=== PATIENT | female | born 1980 | race Caucasian/White ===

== ENCOUNTER → 2023-10-28 09:43 | Outpatient (REF) | payer OTHER, SELFPAY ==
[2023-10-28 10:46] LABS: Microalbumin, Random Urine 2.6 mg/dl (0.6-1.7); Microalbumin/creatinine Ratio 30.1 mg/g
[2023-10-28 12:00] LABS: Glycohemoglobin (HgbA1c) 8.2 % (4.0-5.6)
[2023-10-28 12:22] LABS: TSH Reflex To Free T4 1.33 uIU/ml (0.47-4.68)
[2023-10-28 13:08] LABS: ALT (SGPT) 22 U/L (0-35); AST (SGOT) 20 U/L (14-36); Albumin 4.3 g/dl (3.5-5.0); Alkaline Phosphatase 83 U/L (38-126); Blood Urea Nitrogen 19 mg/dl (7-17); Calcium 10.5 mg/dl (8.4-10.2); Carbon Dioxide 33 mmol/L (22-30); Chloride 93 mmol/L (98-107); Glucose 144 mg/dl (70-99); HDL Cholesterol 49 mg/dl; LDL Cholesterol, Calculated 70 mg/dl; Potassium 3.6 mmol/L (3.5-5.1); Sodium 137 mmol/L (135-145); Total Bilirubin 0.5 mg/dl (0.2-1.3); Total Cholesterol 180 mg/dl (50-199); Total Protein 6.8 g/dl (6.3-8.2); Triglyceride 308 mg/dl (10-149); Very Low Density Lipoprotein 61 mg/dl (0-30); eGFR > 60.00
== END ==
LOC: REG 09:43
PROVIDERS: ATTENDING PHYSICIAN Family Medicine
DX: E11.65 Type 2 diabetes mellitus with hyperglycemia (principal); E78.00 Pure hypercholesterolemia, unspecified; E78.1 Pure hyperglyceridemia; I10 Essential (primary) hypertension; Z68.32 Body mass index [BMI] 32.0-32.9, adult
CPT/HCPCS: 36415; 80053; 80061; 82043; 82570; 83036; 84443

== ENCOUNTER → 2024-04-20 10:35 | Outpatient (REF) | payer BC, SELFPAY ==
[2024-04-20 12:24] LABS: TSH 0.72 uIU/ml (0.47-4.68)
[2024-04-20 12:53] LABS: Microalbumin, Random Urine 0.7 mg/dl (0.6-1.7)
[2024-04-20 14:46] LABS: Folate 16.5 ng/ml (2.76-20); Vitamin B12 496 pg/ml (239-931)
== END ==
LOC: REG 10:35
PROVIDERS: ATTENDING PHYSICIAN Family Medicine; FAMILY PHYSICIAN Family Medicine
DX: E11.65 Type 2 diabetes mellitus with hyperglycemia (principal); E78.00 Pure hypercholesterolemia, unspecified; I10 Essential (primary) hypertension; R53.83 Other fatigue
CPT/HCPCS: 36415; 82043; 82570; 82607; 82746; 84443

== ENCOUNTER → 2024-04-22 10:31 | Outpatient (REF) | payer BC, SELFPAY ==
[2024-04-22 12:03] LABS: Glycohemoglobin (HgbA1c) 6.4 % (4.0-5.6)
[2024-04-22 12:50] LABS: ALT (SGPT) 41 U/L (0-35); AST (SGOT) 36 U/L (14-36); Albumin 4.6 g/dl (3.5-5.0); Alkaline Phosphatase 96 U/L (38-126); Blood Urea Nitrogen 9 mg/dl (7-17); Calcium 10.3 mg/dl (8.4-10.2); Carbon Dioxide 28 mmol/L (22-30); Chloride 99 mmol/L (98-107); Glucose 124 mg/dl (70-99); HDL Cholesterol 43 mg/dl; LDL Cholesterol, Calculated 90 mg/dl; Potassium 3.3 mmol/L (3.5-5.1); Sodium 138 mmol/L (135-145); Total Bilirubin 0.5 mg/dl (0.2-1.3); Total Cholesterol 180 mg/dl (50-199); Total Protein 6.9 g/dl (6.3-8.2); Triglyceride 238 mg/dl (10-149); Very Low Density Lipoprotein 47 mg/dl (0-30); eGFR > 60.00
== END ==
LOC: REG 10:31
PROVIDERS: ATTENDING PHYSICIAN Family Medicine; FAMILY PHYSICIAN Family Medicine
DX: E11.65 Type 2 diabetes mellitus with hyperglycemia (principal); I10 Essential (primary) hypertension; E78.00 Pure hypercholesterolemia, unspecified; R53.83 Other fatigue
CPT/HCPCS: 80053; 80061; 83036

== ENCOUNTER → 2024-06-27 15:45 | Outpatient (REF) | payer BC, SELFPAY | LOC: PAVMRI 15:45 | PROVIDERS: ATTENDING PHYSICIAN Physician Assistant | DX: M25.561 Pain in right knee (principal) | CPT/HCPCS: 73721 ==

== ENCOUNTER 2024-11-14 06:25 | Day surgery (SDC) | payer BC, SELFPAY ==
[2024-11-14 08:01] LABS: Glucose - Point of Care 111 mg/dl (70-99)
== END 2024-11-14 09:44 | disposition home or self-care (01) ==
LOC: GI 06:25
PROVIDERS: ATTENDING PHYSICIAN Student in an Organized Health Care Education/Training Program
DX: D12.2 Benign neoplasm of ascending colon (principal); D12.4 Benign neoplasm of descending colon; K63.5 Polyp of colon; K62.1 Rectal polyp; D17.5 Benign lipomatous neoplasm of intra-abdominal organs; R19.4 Change in bowel habit; K59.00 Constipation, unspecified; K64.0 First degree hemorrhoids; Z86.0100 Personal history of colon polyps, unspecified
CPT/HCPCS: 45385; 88305; 82962

== ENCOUNTER → 2024-12-19 10:46 | Outpatient (REF) | payer BC, SELFPAY ==
[2024-12-19 13:44] LABS: IgA 102 mg/dl (70-400)
[2024-12-19 14:14] LABS: ALT (SGPT) 44 U/L (0-35); AST (SGOT) 19 U/L (14-36); Albumin 3.9 g/dl (3.5-5.0); Alkaline Phosphatase 107 U/L (38-126); Blood Urea Nitrogen 13 mg/dl (7-17); Calcium 10.3 mg/dl (8.4-10.2); Carbon Dioxide 26 mmol/L (22-30); Chloride 103 mmol/L (98-107); Glucose 121 mg/dl (70-99); Potassium 3.4 mmol/L (3.5-5.1); Sodium 141 mmol/L (135-145); Total Bilirubin 0.3 mg/dl (0.2-1.3); Total Protein 6.5 g/dl (6.3-8.2); eGFR > 60.00
[2024-12-19 19:07] LABS: Hepatitis B Surface Antigen Negative (Negative)
[2024-12-19 19:24] LABS: Hepatitis A Antibody, Total Positive (Negative); Hepatitis C Antibody Negative (Negative)
[2024-12-19 20:19] LABS: Hepatitis B Surface Antibody Positive
[2024-12-19 20:28] LABS: Hepatitis B Core Ab, IgM Negative (Negative)
[2024-12-22 01:28] LABS: tTG IgA Antibody <1.02 FLU (0.00-4.99)
== END ==
LOC: REG 10:46
PROVIDERS: ATTENDING PHYSICIAN Student in an Organized Health Care Education/Training Program; FAMILY PHYSICIAN Family Medicine
DX: R79.89 Other specified abnormal findings of blood chemistry (principal); R19.4 Change in bowel habit; R14.0 Abdominal distension (gaseous)
CPT/HCPCS: 36415; 80053; 82784; 86364; 86705; 86706; 86708; 86803; 87340

== ENCOUNTER 2025-02-13 10:59 | Emergency (ER) | payer BC, SELFPAY ==
[2025-02-13 11:01] VITALS: BP 128/79
[2025-02-13 13:00] VITALS: BP 125/77
[2025-02-13] MEDS: TORADOL 15 MG IV (13:11)
[2025-02-13] MEDS: NSS 1000 IV (13:11)
[2025-02-13] MEDS: ZOFRAN 4 MG IV (13:11)
--- NOTE | 2025-02-13 13:26 | ED.GENMED ---
History of Present Illness
General
Chief Complaint: Abdominal Symptoms
Source: patient
Exam Limitations: none
Time Seen by Provider: 02/13/25 12:46
Nursing documentation reviewed up to this point in time: agreed with
History of Present Illness
History of Present Illness:
Patient is a 44-year-old female who presents to the emergency department with lower back pain worsening over the past three days. Patient reports a progressively worsening pain across her lower back, maybe slightly worse on the left side radiating
into her lower abdomen. Pain is constant in nature. Patient denies any fevers, chills. She denies any urinary symptoms or changes in bowel habits. She denies any abnormal vaginal bleeding or discharge. She denies any chest pain or shortness of
breath. No numbness/tingling in extremities or saddle anesthesia.
Patient has had kidney stones in the past and states that this does not feel similar
She has no known injury or trauma.
Past History
Past History
ED Past Medical History: HTN, Hypercholesterolemia and NIDDM
Social History
Tobacco: Smoker
Alcohol: Occasional
Personal: Single
Living: with family
Review of Systems
Review of Systems
Allergies reviewed?: Yes
All Other Systems: ROS reviewed and negative except as documented in HPI and ROS
Phy Exam
Physical Exam
Physical Exam:
Vitals: Patient's vital signs are stable. Afebrile
General: Patient is well appearing, no acute distress. Nontoxic appearing
Skin: Warm and dry, no rashes or lesions
Head: Normocephalic, atraumatic
Eyes: Sclera nonicteric.
Throat: Protecting airway
Neck: Normal ROM, no cervical spine tenderness, no meningismus
Cardiac: Regular rate and rhythm, no murmurs.
Pulm: Normal respiratory effort, no wheezes, rales, rhonchi heard on exam
.
Abdomen: Abdomen soft. Mild reproducible tenderness or LLQ and suprapubic region. No rebound tenderness or guarding.
Back: Reproducible tenderness of lower back without overlying erythema or warmth. No midline spinal tenderness. No rash.
Extremities: No evidence of cyanosis or edema
Neuro: AAOx3. CN II-XII intact. No focal neurologic deficits. Steady gait.
Psychiatric: Normal affect.
Course
Orders/Labs/Results
Orders:
Orders
02/13/25
CT Abd/pelvis W Iv Cont Urgent
02/13/25 13:00
0.9% Sodium Chloride 1000 ml [Nss] 1,000 ml IV BOLUS
Ketorolac [Toradol] 15 mg IV NOW STA
Ondansetron Injectable [Zofran] 4 mg IV NOW STA
02/13/25 13:02
Test Result ONCE
02/13/25 14:54
Complete Blood Count/With Diff Urgent
Comprehensive Metabolic Panel Urgent
HCG, Serum Qualitative Screen Urgent
02/13/25 15:07
Urinalysis Reflex To Culture Urgent
Date Specimen was Collected: 02/13/25
Time Specimen was Collected: 14:56
Urine Microscopic Reflex Cult Urgent
02/13/25 16:22
HYDROmorphone [Dilaudid] 0.5 mg IV NOW STA
02/13/25 17:52
Potassium Chloride [KCl] 40 meq PO NOW STA
Abnormal Lab Results
02/13/25 02/13/25
14:54 15:07
WBC 13.9 H 10^3/uL
(4.8-10.8)
Abs Immat Gran (auto) 0.1 H 10^3/uL
(0-0.05)
Absolute Neuts (auto) 10.5 H 10^3/uL
(1.4-6.5)
Neutrophils % 75.3 H %
(42.2-75.2)
Lymphocytes % 19.2 L %
(20.5-51.1)
Potassium 3.2 L mmol/L
(3.5-5.1)
Glucose 100 H mg/dl
(70-99)
ALT 41 H U/L
(0-35)
Total Protein 6.2 L g/dl
(6.3-8.2)
Urine Bacteria (Reflex) Few A
(Negative)
Urine Albumin (Reflex) 1+ A
(Neg - Trace)
02/13/25 14:54
02/13/25 14:54
Vital Signs
Initial and Last Documented VS:
Initial Vital Signs
Temp Pulse Resp BP Pulse Ox
97.9 F 99 16 128/79 95
02/13/25 11:01 02/13/25 11:01 02/13/25 11:01 02/13/25 11:01 02/13/25 11:01
Last Documented Vital Signs
Temp Pulse Resp BP Pulse Ox
97.9 F 92 19 110/65 91
02/13/25 11:01 02/13/25 17:45 02/13/25 17:45 02/13/25 17:00 02/13/25 17:15
MDM/Problems Addressed
Differential Diagnosis Includes:
Not limited to: pyelonephritis, diverticulitis, ureterolithiasis, ovarian cyst, etc
MDM/Problems Addressed:
44-year-old female with gradually worsening lower back discomfort radiating into low abdomen for the past three days. No associated fever, vomiting, urinary symptoms, vaginal discharge. No diarrhea or constipation. Vital stable. Physical exam as
above.
Feel clinical history and exam less consistent with renal colic. Other considerations would include cystitis, pyelonephritis, diverticulitis, etc. Will plan for laboratory screening, urinalysis, CT scan. Will treat pain and give IV fluids.
Update: labs reviewed. Mild leukocytosis noted. Chemistry with mild hypokalemia otherwise unremarkable. Urine does not appear infected, and she has no RBCs. CT scan without any acute findings, specifically no evidence of uretera obstruction or bowel
pathology. Small fibroid noted which I discussed with patient. I feel unlikely to be contributing to majority of patient symptoms however it is a possibility. DO not suspect ovarian etiology given normal appearanc amber CT. Ultimately - workup ED has
been unremarkable. Patient remains well appearing and in no apparent distress. Do not feel abx indicated given no clear evidence of infection. Possibly MSK in nature. No evidence of vascular emergency or symptoms of cauda equina. At this point -
feel patient stable for discharge home with primary care f/u, supportive care. Return precautions discussed. Patient comfortable with plan.
Chronic conditions affecting care:
N/A
Acute Exacerbation and/or Progression of Chronic Illness:
N/A
*Radiology
Radiology exam reviewed: radiology read reviewed
*Pulse Oximetry
Patient hypoxic: no
*EKG
Interpreted by ED Provider?: NA
*Senior Hardware Design Engineer Interpretation
Rate: Senior Hardware Design Engineer- N/A
*Critical Care Note
Total Time (30-74mins, 75-104mins- exclusive of procedures): Not Applicable
ED Attending Note
-
Portions of this chart may have been created with voice recognition software.� Occasional wrong word or��sound alike� substitutions may have occurred due to the inherent limitations of voice recognition software.
Discharge Plan
Departure
Patient Disposition: Home (Routine Discharge)
Date of Disposition: 02/13/25
Time of Disposition: 17:44
Patient with high blood pressure during this ER visit?: Yes
Condition: Good
Covid-19: Not Applicable
Discharge Problem:
Low back pain, Abdominal pain
Instructions: Back Pain, Abdominal Pain
Prescriptions:
New
ondansetron 4 mg tablet,disintegrating
4 mg PO Q8H PRN (Reason: nausea and vomiting) Qty: 5 0RF
No Action
oxycodone-acetaminophen 5 MG/325 MG tablet
1 tab PO Q6HPRN PRN (Reason: pain) Qty: 14 0RF
olmesartan 20 MG tablet
20 mg PO DAILY
amlodipine 5 MG tablet
5 mg PO DAILY
lorazepam 2 MG tablet
2 mg PO Q8HPRN PRN (Reason: anxiety)
albuterol sulfate 1 PUFF HFA aerosol inhaler
2 puff inhalation R Q4HPRN PRN (Reason: asthma)
budesonide-formoterol [Symbicort] 1 PUFF HFA aerosol inhaler
2 puff inhalation R BID
metformin 500 MG tablet
500 mg PO DAILY
rosuvastatin 5 MG tablet
5 mg PO DAILY
Referrals:
Clovis Dejesus, DO [Family Provider] - Follow up in 2-3 days
Stand Alone Forms: Return to Work
Activity Restrictions/Additional Instructions:
RETURN TO THE EMERGENCY DEPARTMENT WITH ANY FEVERS, CHILLS, PERSISTENT/WORSENING ABDOMINAL PAIN, INTRACTABLE NAUSEA/VOMITING, NUMBNESS/TINGLING OR WEAKNESS IN EXTREMITIES, WORSENING IN CURRENT SYMPTOMS, OR ANY OTHER CONCERNS
- As discussed�your white blood cell count was elevated in the emergency department. Please ensure that this trends down with your primary care doctor. Your potassium level was slightly low, as well. You were given a dose of oral potassium in the
emergency department. I recommend a high potassium diet and following up your primary care for repeat lab work.
- Your CT scan showed a mild elevation in your bile duct. However your liver function tests and bilirubin were without significant abnormalities. You may require an additional MRI/MRCP which can be done outpatient.
- Stay well-hydrated. Get plenty rest. You can take Tylenol and/or Motrin as needed for pain.
Monitor your symptoms closely and return to the emergency department with any acute worsening/new symptoms or any other concerns
Interventions
Interventions:
*Risk Screen - Suicide Last Done: 02/13/25 11:03
*General Assessment Last Done: 02/13/25 13:00
*Neglect/Abuse Screening Last Done: 02/13/25 11:03
*ED- Fall Risk Assessment Last Done: 02/13/25 13:00
*ED COVID-19 Vaccine History Last Done: 02/13/25 13:00
*Nursing Disposition Last Done: 02/13/25 18:00
CA-Yrwefh-Ulylloinxl Assessment Last Done: 02/13/25 13:00
Discharge Date and Time
Discharge Date/Time: 02/13/25 18:00
Print Language: KAZAKH
[2025-02-13 14:00] VITALS: BP 108/68
[2025-02-13 15:06] VITALS: BP 114/75
[2025-02-13 15:09] LABS: % Basophils 0.4 % (0-2); % Eosinophils 0.4 % (0-6); % Immature Granulocytes 0.5 % (0-0.5); % Lymphocytes 19.2 % (20.5-51.1); % Monocytes 4.2 % (1.7-9.3); % Neutrophils 75.3 % (42.2-75.2); Absolute Basophils 0.1 10^3/uL (0-0.2); Absolute Eosinophils 0.1 10^3/uL (0-0.7); Absolute Immature Granulocytes 0.1 10^3/uL (0-0.05); Absolute Lymphocytes 2.7 10^3/uL (1.2-3.4); Absolute Monocytes 0.6 10^3/uL (0.1-0.6); Absolute Neutrophils 10.5 10^3/uL (1.4-6.5); Hematocrit 38.6 % (37.0-47.0); Hemoglobin 13.1 g/dL (12.0-16.0); Mean Corp Hgb Conc. 33.9 g/dL (33.0-37.0); Mean Corpuscular Hgb 30.2 pg (27.0-31.0); Mean Corpuscular Volume 88.9 fL (81.0-99.0); Mean Platelet Volume 7.8 fL (7.4-10.4); Nucleated Red Blood Cells % 0 %; Platelet Count 354 10^3/uL (130-400); Red Blood Cell Count 4.34 10^6/uL (4.20-5.40); Red Cell Dist. Width 12.6 % (11.5-14.5); White Blood Cell Count 13.9 10^3/uL (4.8-10.8)
[2025-02-13 15:21] LABS: ALT (SGPT) 41 U/L (0-35); AST (SGOT) 23 U/L (14-36); Albumin 3.9 g/dl (3.5-5.0); Alkaline Phosphatase 104 U/L (38-126); Blood Urea Nitrogen 11 mg/dl (7-17); Calcium 9.4 mg/dl (8.4-10.2); Carbon Dioxide 28 mmol/L (22-30); Chloride 107 mmol/L (98-107); Glucose 100 mg/dl (70-99); Potassium 3.2 mmol/L (3.5-5.1); Sodium 139 mmol/L (135-145); Total Bilirubin 0.5 mg/dl (0.2-1.3); Total Protein 6.2 g/dl (6.3-8.2); eGFR > 60.00
[2025-02-13 15:23] LABS: HCG, Serum Qualitative Screen Negative
[2025-02-13 16:14] LABS: Urine Albumin 1+ (Neg - Trace); Urine Bilirubin Negative (Negative); Urine Character Clear (Clear); Urine Color Yellow; Urine Glucose Negative (Negative); Urine Ketone Negative (Negative); Urine Leukocyte Negative (Negative); Urine Nitrite Negative (Negative); Urine Occult Blood Negative (Negative); Urine Specific Gravity 1.015 (<1.030); Urine Urobilinogen Negative (Neg - 1+)
[2025-02-13 16:40] LABS: Urine Bacteria Few (Negative); Urine Hyaline Cast 0-2 /LPF (0-2); Urine Red Blood Cell 0-2 /HPF (0-2); Urine Squamous Cell >30 /LPF (Few)
[2025-02-13] MEDS: DILAUDID 0.5 MG IV (16:44)
[2025-02-13 16:46] VITALS: BP 123/71
[2025-02-13 17:00] VITALS: BP 110/65
[2025-02-13] MEDS: KCL 40 MEQ PO (18:02)
== END 2025-02-13 18:00 | disposition home or self-care (01) ==
LOC: EMR 10:59
PROVIDERS: Physician Assistant; EMERGENCY PHYSICIAN Emergency Medicine; FAMILY PHYSICIAN Family Medicine
DX: M54.50 Low back pain, unspecified (principal); R10.9 Unspecified abdominal pain; E87.6 Hypokalemia; D25.9 Leiomyoma of uterus, unspecified; E78.00 Pure hypercholesterolemia, unspecified; I10 Essential (primary) hypertension; E11.9 Type 2 diabetes mellitus without complications; F17.200 Nicotine dependence, unspecified, uncomplicated
CPT/HCPCS: 96374; 96375; 96361; 99284; 74177; 80053; 81003; 81015; 84703; 85025; Q9967

== ENCOUNTER 2025-06-05 09:19 | Emergency (ER) | payer BC, SELFPAY ==
[2025-06-05 09:21] VITALS: BP 167/111
[2025-06-05 09:32] VITALS: BMI 30.7
[2025-06-05] MEDS: NSS 1000 IV ×2 (09:37→12:18)
[2025-06-05] MEDS: ZOFRAN 4 MG IV ×2 (09:37→12:19)
[2025-06-05] MEDS: PEPCID 20 MG IV (09:38)
[2025-06-05 09:55] LABS: Hematocrit 49.0 % (37.0-47.0); Hemoglobin 16.8 g/dL (12.0-16.0); Mean Corp Hgb Conc. 34.3 g/dL (33.0-37.0); Mean Corpuscular Volume 88.0 fL (81.0-99.0); Nucleated Red Blood Cells % 0 %; Platelet Count 330 10^3/uL (130-400); Red Cell Dist. Width 12.3 % (11.5-14.5)
[2025-06-05 10:11] LABS: ALT (SGPT) 22 U/L (0-35); AST (SGOT) 18 U/L (14-36); Albumin 5.0 g/dl (3.5-5.0); Alkaline Phosphatase 83 U/L (38-126); Blood Urea Nitrogen 14 mg/dl (7-17); Calcium 10.5 mg/dl (8.4-10.2); Carbon Dioxide 28 mmol/L (22-30); Chloride 99 mmol/L (98-107); Estimated Creatinine Clearance 112 ml/min; Glucose 133 mg/dl (70-99); Lipase 210 U/L (23-300); Potassium 3.4 mmol/L (3.5-5.1); Sodium 137 mmol/L (135-145); Total Protein 7.7 g/dl (6.3-8.2); eGFR > 60.00
[2025-06-05] MEDS: BENADRYL 25 MG IV (10:44)
[2025-06-05] MEDS: REGLAN 10 MG IV (10:44)
[2025-06-05 12:19] VITALS: BP 163/103
--- NOTE | 2025-06-05 13:55 | ED.GENMED ---
History of Present Illness
General
Chief Complaint: Abdominal Symptoms
Source: patient
Exam Limitations: none
Time Seen by Provider: 06/05/25 09:26
Nursing documentation reviewed up to this point in time: agreed with
History of Present Illness
History of Present Illness:
45-year-old female past ministry of hypertension hyperlipidemia, asthma anxiety panic disorder presenting to the emergency department today with concerns of nausea vomiting diarrhea over the past 3 days. Seem to improve up until last night and then
recurred this morning. Denies any abdominal pain chest pain or shortness of breath. Denies any history of GI issues does not consume marijuana or drink alcohol.
Past History
Past History
ED Past Medical History: HTN, Hypercholesterolemia and NIDDM
Social History
Tobacco: Smoker
Alcohol: Occasional
Personal: Single
Living: with family
Review of Systems
Review of Systems
Allergies reviewed?: Yes
All Other Systems: ROS reviewed and negative except as documented in HPI and ROS
Phy Exam
Physical Exam
Physical Exam:
GENERAL: Alert , in no apparent distress
EYE: pupils equal and reactive
NECK: Supple, no significant adenopathy.
ENT: o/p clr, mmm.
CARDIAC: Regular rate and rhythm .
LUNGS: Clear breath sounds bilaterally, no acute respiratory distress, no wheezes/rales/rhonchi
ABDOMEN: Soft, without focal tenderness, no r/g, no cvat
NEUROLOGICAL: Alert and oriented, no focal neuro deficits
SKIN: Warm and dry, skin intact.
MUSCULOSKELETAL: No edema, well perfused.
PSYCH: Normal and appropriate interaction.
Course
Orders/Labs/Results
Orders:
Orders
06/05/25 09:26
0.9% Sodium Chloride 1000 ml [Nss] 1,000 ml IV BOLUS
Famotidine [Pepcid] 20 mg IV NOW STA
Ondansetron Injectable [Zofran] 4 mg IV NOW STA
06/05/25 09:35
Complete Blood Count/With Diff Urgent
Comprehensive Metabolic Panel Urgent
Lipase Urgent
06/05/25 10:20
Diphenhydramine [Benadryl] 25 mg IV NOW STA
Metoclopramide [Reglan] 10 mg IV NOW STA
06/05/25 11:59
EKG [Electrocardiogram (*1)] Urgent
Reason for Study: Abdominal Pain
EKG- Treatment ONCE
0.9% Sodium Chloride 1000 ml [Nss] 1,000 ml IV BOLUS
Ondansetron Injectable [Zofran] 4 mg IV NOW STA
06/05/25 14:27
Alprazolam [Xanax] 0.5 mg PO ONCE ONE
06/05/25 15:13
Urinalysis Reflex To Culture Urgent
Date Specimen was Collected: 06/05/25
Time Specimen was Collected: 14:17
Abnormal Lab Results
06/05/25
09:35
RBC 5.57 H 10^6/uL
(4.20-5.40)
Hgb 16.8 H g/dL
(12.0-16.0)
Hct 49.0 H %
(37.0-47.0)
Absolute Neuts (auto) 7.1 H 10^3/uL
(1.4-6.5)
Absolute Monos (auto) 0.8 H 10^3/uL
(0.1-0.6)
Potassium 3.4 L mmol/L
(3.5-5.1)
Glucose 133 H mg/dl
(70-99)
Calcium 10.5 H mg/dl
(8.4-10.2)
06/05/25 09:35
06/05/25 09:35
Vital Signs
Initial and Last Documented VS:
Initial Vital Signs
Temp Pulse Resp BP Pulse Ox
97.5 F 102 20 167/111 98
06/05/25 09:21 06/05/25 09:21 06/05/25 09:21 06/05/25 09:21 06/05/25 09:21
Last Documented Vital Signs
Temp Pulse Resp BP Pulse Ox
97.5 F 91 16 163/103 96
06/05/25 09:21 06/05/25 12:19 06/05/25 12:19 06/05/25 12:19 06/05/25 13:56
MDM/Problems Addressed
MDM/Problems Addressed:
45-year-old female presenting to the emergency department today with concerns of nausea vomiting diarrhea ongoing for 3 days. On arrival patient retching but vital signs otherwise normal. Labs unremarkable patient was given Zofran without
significant improvement then was given Reglan. No reproducible abdominal pain. EKG normal does not seem to be consistent with any referred pain she was given multiple medications here and watched for over 6 hours with steadily improving symptoms.
Able to tolerate by mouth which was much improved from her arrival. No abdominal pain at any point. Patient appeared stable for discharge return precautions given.
*Pulse Oximetry
SaO2: 96
Oxygen Mode of Delivery: Room air
Patient hypoxic: no (96)
*Critical Care Note
Total Time (30-74mins, 75-104mins- exclusive of procedures): Not Applicable
ED Attending Note
-
Portions of this chart may have been created with voice recognition software.� Occasional wrong word or��sound alike� substitutions may have occurred due to the inherent limitations of voice recognition software.
Discharge Plan
Departure
Patient Disposition: Home (Routine Discharge)
Date of Disposition: 06/05/25
Time of Disposition: 15:35
Patient with high blood pressure during this ER visit?: No
Condition: Good
Covid-19: Not Applicable
Discharge Problem:
Vomiting, Diarrhea
Instructions: Diarrhea in teens and adults, Nausea and Vomiting, Adult (DC)
Prescriptions:
New
ondansetron 4 mg tablet,disintegrating
4 mg PO Q6H PRN (Reason: nausea and vomiting) Qty: 7 0RF
No Action
oxycodone-acetaminophen 5 MG/325 MG tablet
1 tab PO Q6HPRN PRN (Reason: pain) Qty: 14 0RF
olmesartan 20 MG tablet
20 mg PO DAILY
amlodipine 5 MG tablet
5 mg PO DAILY
lorazepam 2 MG tablet
2 mg PO Q8HPRN PRN (Reason: anxiety)
albuterol sulfate 1 PUFF HFA aerosol inhaler
2 puff inhalation R Q4HPRN PRN (Reason: asthma)
budesonide-formoterol [Symbicort] 1 PUFF HFA aerosol inhaler
2 puff inhalation R BID
metformin 500 MG tablet
500 mg PO DAILY
rosuvastatin 5 MG tablet
5 mg PO DAILY
ondansetron 4 mg tablet,disintegrating
4 mg PO Q8H PRN (Reason: nausea and vomiting) Qty: 5 0RF
Referrals:
Clovis Dejesus, [Family Provider, Family Practice]
Activity Restrictions/Additional Instructions:
You came to the emergency department today with concerns of nausea vomiting diarrhea. Here your reassuring assessment. Please use the prescribed antinausea medication and slowly progress your diet over the next few days. Return immediately for
any worsening, new or concerning symptoms.
Interventions
Interventions:
*Risk Screen - Suicide Last Done: 06/05/25 09:32
*General Assessment Last Done: 06/05/25 09:32
*Neglect/Abuse Screening Last Done: 06/05/25 09:32
*ED COVID-19 Vaccine History Last Done: 06/05/25 09:32
TC-Htyvgi-Ugjssqlhpv Assessment Last Done: 06/05/25 09:32
Discharge Date and Time
Print Language: SRI LANKAN
[2025-06-05] MEDS: XANAX 0.5 MG PO (15:03)
[2025-06-05 15:25] LABS: Urine Character Clear (Clear)
[2025-06-05 16:43] LABS: Urine Red Blood Cell 16-20 /HPF (0-2); Urine Squamous Cell 0-2 /LPF (Few)
== END 2025-06-05 16:07 | disposition home or self-care (01) ==
LOC: EMR 09:19
PROVIDERS: Physician Assistant; EMERGENCY PHYSICIAN Emergency Medicine; FAMILY PHYSICIAN Family Medicine
DX: R11.10 Vomiting, unspecified (principal); R19.7 Diarrhea, unspecified; E11.9 Type 2 diabetes mellitus without complications; I10 Essential (primary) hypertension; E78.00 Pure hypercholesterolemia, unspecified; J45.909 Unspecified asthma, uncomplicated; F41.9 Anxiety disorder, unspecified; F41.0 Panic disorder [episodic paroxysmal anxiety]; F17.200 Nicotine dependence, unspecified, uncomplicated; Z79.84 Long term (current) use of oral hypoglycemic drugs
CPT/HCPCS: 99284; 96374; 96375 ×3; 96376; 96361 ×2; 80053; 81003; 81015; 83690; 85025; 93005

== ENCOUNTER 2025-08-30 04:13 | Inpatient (IN) | payer BC, SELFPAY ==
[2025-08-30] VITALS (17 sets, daily range): BP systolic 89–140; BP diastolic 46–83; BMI 34.9; BMI 34.2
[2025-08-30 01:37] LABS: Hematocrit 37.1 % (37.0-47.0); Hemoglobin 12.8 g/dL (12.0-16.0); Mean Corp Hgb Conc. 34.5 g/dL (33.0-37.0); Mean Corpuscular Volume 90.7 fL (81.0-99.0); Nucleated Red Blood Cells % 0 %; Platelet Count 324 10^3/uL (130-400); Red Cell Dist. Width 13.0 % (11.5-14.5)
[2025-08-30] MEDS: NSS 1000 IV ×4 (01:37→21:13)
[2025-08-30] MEDS: DILAUDID 0.5 MG IV ×10 (01:38→23:27)
[2025-08-30 01:46] LABS: HCG, Serum Qualitative Screen Negative
[2025-08-30 01:52] LABS: ALT (SGPT) 40 U/L (0-35); AST (SGOT) 25 U/L (14-36); Albumin 4.1 g/dl (3.5-5.0); Alkaline Phosphatase 95 U/L (38-126); Blood Urea Nitrogen 21 mg/dl (7-17); Calcium 9.4 mg/dl (8.4-10.2); Carbon Dioxide 24 mmol/L (22-30); Chloride 106 mmol/L (98-107); Glucose 94 mg/dl (70-99); Potassium 3.8 mmol/L (3.5-5.1); Sodium 135 mmol/L (135-145); Total Protein 6.6 g/dl (6.3-8.2); eGFR > 60.00
[2025-08-30 02:11] LABS: INR 0.93; PT 12.5 Sec (11.4-14.6)
[2025-08-30 02:13] LABS: APTT 29.3 Sec (23.4-35.0)
[2025-08-30 02:15] LABS: Troponin I < 0.012 ng/ml
[2025-08-30] MEDS: ZOSYN 100 IV (02:25)
--- NOTE | 2025-08-30 02:44 | ED.GENMED ---
History of Present Illness
General
Chief Complaint: Anal/Rectal Problem
Source: patient and physician (Dr. Barnard called and notified us of her arrival and his requests)
Exam Limitations: none
Time Seen by Provider: 08/30/25 00:46
Nursing documentation reviewed up to this point in time: agreed with
History of Present Illness
History of Present Illness:
Note:
CHIEF COMPLAINT(S)
Rectal abscess with history of diabetes mellitus.
HISTORY OF PRESENT ILLNESS
The patient is a 45-year-old female with a history of diabetes who presents with a rectal abscess. She initially experienced pressure in the affected area last week, which she described as not severely painful. The patient had a similar issue in
March 2020 that resolved after surgical intervention. Over the past week, she noted increased discomfort prompting her to contact her physician, Dr. Barnard, who assessed her and advised hospital admission for potential surgical intervention. The
patient has not taken any pain medication, and she denied alcohol consumption. Her physician arranged for imaging and laboratory work, and she is advised to refrain from any oral intake in preparation for a potential procedure. The patient mentioned
irregular menstrual cycles, fluctuating with hormonal changes.
SOCIAL HISTORY
The patient denies alcohol use. The conversation did not explicitly mention smoking status, but it was implied that the patient may have smoked, as there was an unintended apology regarding smoking status.
PHYSICAL EXAM
General: Alert, moderate acute distress pacing around the room
Skin: Warm, dry.
Head: Normocephalic, atraumatic.
Neck: Supple, trachea midline.
Eye, Ears, Nose, Mouth and Throat: Oral mucosa moist.
Cardiovascular: Normal peripheral perfusion, no edema. No murmur
Respiratory: Respirations are non-labored. No wheezing
Gastrointestinal: Abdomen nondistended.
Musculoskeletal: Normal range of motion, normal strength.
Neurological: Alert and oriented to person, place, time, and situation. No focal neurological deficit observed.
Psychiatric: Cooperative, appropriate mood & affect.
PROBLEM LIST
Acute Problems:
- Rectal abscess
- Preparation for potential surgical intervention
Chronic Problems:
- Diabetes mellitus
PLAN
1. Admit the patient to the hospital for monitoring and preparation for possible surgical intervention on the rectal abscess.
2. Perform a computed tomography (CT) scan and laboratory investigations.
3. Provide intravenous fluids; restrict oral intake in preparation for surgery.
4. Administer analgesics to manage pain as needed, pending procedural decisions.
DIFFERENTIAL DIAGNOSIS
The Differential Diagnosis includes, in no particular order and is not limited to:
1. Anorectal abscess
2. Anal fistula
3. Pilonidal cyst
4. Hemorrhoids
5. Inflammatory bowel disease
6. Rectal carcinoma
7. Perianal infection
8. Anal fissure
9. Diabetes-related gastrointestinal complication
10. Infectious colitis
Disposition:
SUMMARY OF ENCOUNTER
The patient, a 45-year-old female with a history of diabetes mellitus, presented to the emergency department with a rectal abscess. She was evaluated and a CT scan was performed, confirming the presence of an anorectal abscess. Due to the potential
need for surgical intervention, the patient was admitted to the hospitalist service for further management. Arrangements were made for the patient to be seen by Dr. Barnard from colorectal surgery the following morning.
DISPOSITION
Admit to the hospitalist service.
ASSESSMENT
Anorectal abscess requiring hospitalization and potential surgical intervention.
PLAN
Admit the patient to the hospitalist service for monitoring and preparation for potential surgical intervention by colorectal surgery.
INDEPENDENT REVIEW OF LABS AND INTERPRETATION OF TESTS
My independent interpretation of the CT scan indicates the presence of an anorectal abscess.
MEDICAL DECISION MAKING
-Complexity of Data Reviewed: Chronic conditions affecting care [diabetes mellitus]. Differential Diagnosis includes anorectal abscess, anal fistula, pilonidal cyst, hemorrhoids, inflammatory bowel disease, rectal carcinoma, perianal infection, anal
fissure, diabetes-related gastrointestinal complication, and infectious colitis.
-Data:
Category 1
The following testing was conducted: CT scan confirming anorectal abscess.
Category 3
Discussion of management with Dr. Barnard, colorectal surgeon.
-Risk:
Prescription medication was considered, but ultimately not prescribed.
DIAGNOSIS
Anorectal abscess (ICD-10: K61.3).
Type 2 diabetes mellitus (ICD-10: E11.9).
Past History
Past History
ED Past Medical History: HTN, Hypercholesterolemia and NIDDM
Social History
Tobacco: Smoker
Alcohol: Occasional
Personal: Single
Living: with family
Phy Exam
Physical Exam
Physical Exam:
.
Sepsis
Sepsis Screening
Sepsis Assessment: Sepsis
Sepsis Screen
Sepsis Screen: Sepsis
Date: 08/30/25
Time: 04:05
Course
Orders/Labs/Results
Orders:
Orders
08/30/25 00:46
Urinalysis Reflex To Culture Urgent
08/30/25 00:47
Test Result ONCE
08/30/25 00:48
CT Pelvis With Iv Contrast Urgent
Comment: attending ordered wrong order, changed to just pelvis
Reason For Exam: rectal abscess
08/30/25 01:00
0.9% Sodium Chloride 1000 ml [Nss] 1,000 ml IV 250 mls/hr
08/30/25 01:18
HYDROmorphone [Dilaudid] 0.5 mg IV NOW STA
08/30/25 01:26
Complete Blood Count/With Diff Urgent
Comprehensive Metabolic Panel Urgent
HCG, Serum Qualitative Screen Urgent
Lactic Acid Q4H
Comment: CANCEL 2nd LACTIC ACID IF 1st LACTIC ACID IS LESS THAN 2
PTT Urgent
Prothrombin Time Urgent
Troponin I Urgent
Blood Culture Q30M
ABRAHAN Source: Blood/Venous
Specimen Description:
Blood Culture Q30M
ABRAHAN Source: Blood/Venous
Specimen Description:
08/30/25 01:55
Piperacillin/Tazo 4.5 Gram [Zosyn] 4.5 gram in 100 ml IV NOW
08/30/25 02:45
Admit/Transfer Patient As Directed
Co-Sign Provider:
Level of Care: Inpatient admission
Assign to:: Medical/Surgical
Physician / Group: Zia
Diagnosis: Perianal Abscess
Reason for Hospitalization: Perianal Abscess
Expected length of stay greater than two midnights?: Yes
ELOS- Estimated Length of Stay in days: 3
I certify the patient meets the requirements for IP care: Yes
PRN Pain Medication Management As Directed
May give lesser potent ordered pain med per pt: Yes
preference::
Protocol:: Medication orders for pain may be administered in a
manner that supports deferring to patient preference
when the pt is:
- Requesting an ordered lesser potent pain medication.
Least to most potent pain medications are defined
as: acetaminophen < NSAID < tramadol < opioids
(morphine, oxycodone, hydromorphone).
- Requesting a lesser dose of the same medication IF
ORDERED.
- Requesting a less intrusive route of administration
if both routes are prescribed by the provider (PO <
IV).
08/30/25 02:46
Code Status As Directed
Resuscitation Status: Full Code
08/30/25 05:00
Lactic Acid Q4H
Comment: CANCEL 2nd LACTIC ACID IF 1st LACTIC ACID IS LESS THAN 2
08/30/25 Breakfast
NPO
Allow oral meds: Yes
Allow clear liquids: Sips of Clears
Abnormal Lab Results
08/30/25
01:26
WBC 19.8 H 10^3/uL
(4.8-10.8)
RBC 4.09 L 10^6/uL
(4.20-5.40)
MCH 31.3 H pg
(27.0-31.0)
Abs Immat Gran (auto) 0.1 H 10^3/uL
(0-0.05)
Absolute Neuts (auto) 15.2 H 10^3/uL
(1.4-6.5)
Absolute Monos (auto) 1.4 H 10^3/uL
(0.1-0.6)
Immature Gran % 0.6 H %
(0-0.5)
Neutrophils % 76.7 H %
(42.2-75.2)
Lymphocytes % 14.8 L %
(20.5-51.1)
BUN 21 H mg/dl
(7-17)
ALT 40 H U/L
(0-35)
08/30/25 01:26
08/30/25 01:26
Vital Signs
Initial and Last Documented VS:
Initial Vital Signs
Temp Pulse Resp BP Pulse Ox
97.9 F 102 20 119/66 96
08/30/25 00:01 08/30/25 00:01 08/30/25 00:01 08/30/25 00:01 08/30/25 00:01
Last Documented Vital Signs
Temp Pulse Resp BP Pulse Ox
97.9 F 102 20 106/63 94
08/30/25 00:01 08/30/25 00:01 08/30/25 00:01 08/30/25 02:19 08/30/25 03:00
*Radiology
Radiology exam reviewed: radiology read reviewed
*Pulse Oximetry
SaO2: 96
Oxygen Mode of Delivery: Room air
Patient hypoxic: no
*Critical Care Note
Total Time (30-74mins, 75-104mins- exclusive of procedures): Not Applicable
Update Note
Update Note:
NAME: KAPIL WETZEL
DATE OF EXAM: 08/30/2025
Patient No: [id number]
Physician: ZEENAT^Deniz
Date of : 1980
Past Medical History (entered by Technologist):
Reason For Exam (entered by Technologist):
Other Notes (entered by Technologist): c/f rectal abscess
priors
Additional Information (per [facility] Radiologist):
CT pelvis with IV contrast
IMPRESSION:
Ill-defined abscess posterior to the anorectum, at the 6 o'clock position, measuring approximately 1.3 x 1.4 x 1.6 cm, confined within the boundaries of the external anal sphincter. Ill-defined anorectal wall thickening. No involvement of the
ischioanal fossa or inferior perineum.
Myomatous uterus.
Case finalized on 08/30/25 03:09 EDT
Usman Coffman MD
This report has been electronically signed and verified by the Radiologist whose name is printed above.
ED Attending Note
-
Portions of this chart may have been created with voice recognition software.� Occasional wrong word or��sound alike� substitutions may have occurred due to the inherent limitations of voice recognition software.
Discharge Plan
Departure
Patient Disposition: Admit
Date of Disposition: 08/30/25
Time of Disposition: 04:03
Admit to: Med/Surg
Presentation/result/management discussed w/ accepting MD/DO: Hospitalist
Condition: Fair
Discharge Problem:
Abscess, anorectal
Prescriptions:
No Action
olmesartan 20 MG tablet
20 mg PO DAILY
amlodipine 5 MG tablet
5 mg PO DAILY
lorazepam 2 MG tablet
2 mg PO Q8HPRN PRN (Reason: anxiety)
albuterol sulfate 1 PUFF HFA aerosol inhaler
2 puff inhalation R Q4HPRN PRN (Reason: asthma)
budesonide-formoterol [Symbicort] 1 PUFF HFA aerosol inhaler
2 puff inhalation R BID
celecoxib 200 mg capsule
200 mg PO DAILY PRN (Reason: Pain)
prednisone 10 mg tablet
See Rx Instructions .ROUTE .COMPLEX
Rx Instructions:
Taper as per 'original instructions'
famotidine 40 mg tablet
40 mg PO DAILY
dextroamphetamine-amphetamine 10 mg tablet
10 mg PO DAILY
chlorthalidone 25 mg tablet
25 mg PO DAILY
gabapentin 300 mg capsule
300 mg PO TID
rosuvastatin 10 mg tablet
10 mg PO DAILY
Mounjaro 15 mg/0.5 mL pen injector
15 mg SC WEEKLY
morphine 30 mg tablet extended release
30 mg PO BID
oxycodone-acetaminophen 10-325 mg tablet
1 tab PO Q6HPRN PRN (Reason: Pain)
Referrals:
Clovis Dejesus DO [Family Provider, Family Practice]
Interventions
Interventions:
*Risk Screen - Suicide Last Done: 08/30/25 00:01
*General Assessment Last Done: 08/30/25 03:08
*Neglect/Abuse Screening Last Done: 08/30/25 03:11
*ED COVID-19 Vaccine History Last Done: 08/30/25 03:08
*ED Influenza Vaccine History Last Done: 08/30/25 03:08
[facility] Fall Risk Assessment Tool Last Done: 08/30/25 01:51
ED-Skin Assessment Last Done: 08/30/25 01:53
Discharge Date and Time
Print Language: SERBIAN
--- NOTE | 2025-08-30 02:50 | HPS.HSE ---
Addendum entered and electronically signed by Daniel Lizarraga DO 08/30/25 03:09:
A/P:
Chronic Pain Syndrome
Chronic Opioid Dependence
- PDMP reviewed.
- Patient maintained on BID morphine, PRN Percocet (and PRN lorazepam).
- Continue Morphine ER with out change. Hold Percocet acutely. IV Dilaudid for breakthrough as needed.
- Decrease Lorazepam dose and hold any sedating meds for evidence of over-sedation.
- Follow-up with Pain Management after discharge.
Original Note:
Family Physician
-
Family Physician: Clovis Dejesus
Chief Complaint
-
Anal Pain
History of Present Illness
Patient is a 45y F with PMH significant for hypertension, DM-II and prior perirectal abscess who presents to ED complaining of pain in the buttocks / perirectal area for about one week. Patient notes that pain has gotten severe with any pressure
- i.e. sitting or lying supine. She has no significant pain with BM. No fevers / chills. No N/V. Patient reports prior h/o similar issues and required I&D / drainage of perirectal abscess in 2019.
Medical History
Past Medical History
Past Medical History: Reports Other
Additional Past Medical History:
Hypertension
DM-II
Narcolepsy
Nephrolithiasis
Perirectal Abscess
Past Surgical History: Reports Other
Additional Past Surgical History:
Perirectal Abscess Drainage (2019)
Bilateral Knee Arthroscopies
Social History
Tobacco: Smoker (Current every day smoker. Approx 20 pack years total use.)
Alcohol: Occasional
Drug: None
Family History
Family History: Not pertinent
Allergies / Home Medications
Allergies reflects when Allergies were last updated in [employer].
Home Medications with original date entered in [employer]
Allergy/Medication List:
Allergies
Allergy/AdvReac Type Severity Reaction Status Date / Time
shellfish derived Allergy Hives; Verified 08/30/25 00:00
throat
itchy
acetaminophen (From Tylenol) AdvReac Upset Verified 08/30/25 00:00
stomach
NSAIDS (Non-Steroidal AdvReac 'TEARS MY Verified 08/30/25 00:00
Anti-Inflamma STOMACH UP'
Home Medications
oxycodone-acetaminophen 5 mg-325 mg tablet 1 tab PO Q6HPRN PRN pain #14 tabs 12/09/21
olmesartan 20 mg tablet 20 mg PO DAILY 12/30/21
albuterol sulfate 90 mcg/actuation aerosol inhaler 2 puff inhalation R Q4HPRN PRN asthma 01/10/22
amlodipine 5 mg tablet 5 mg PO DAILY 01/10/22
budesonide-formoterol HFA 160 mcg-4.5 mcg/actuation aerosol inhaler (Symbicort) 2 puff inhalation R BID 01/10/22
lorazepam 2 mg tablet 2 mg PO Q8HPRN PRN anxiety 01/10/22
metformin 500 mg tablet 500 mg PO DAILY 03/11/22
rosuvastatin 5 mg tablet 5 mg PO DAILY 03/11/22
ondansetron 4 mg disintegrating tablet 4 mg PO Q8H PRN nausea and vomiting #5 tabs 02/13/25
ondansetron 4 mg disintegrating tablet 4 mg PO Q6H PRN nausea and vomiting #7 tabs 06/05/25
Review of Systems
-
History Source: Patient
A 12 point ROS was completed and negative except as noted: Yes
Constitutional: Denies Fever or Chills
Respiratory: Denies Cough or Trouble Breathing
Cardiac: Denies Chest Pain or Palpitations
Abdomen/GI: Reports Other (Buttocks / rectal pain.); Denies Abdominal Pain, Nausea, Vomiting, Diarrhea, Bloody Stools or Black Stools
Neurological: Denies Dizzy or Headache
Psych: Denies Depression or Anxiety
Physical Exam
Vital Signs
Vital Signs
Temp Pulse Resp BP Pulse Ox
97.9 F 102 20 119/66 96
08/30/25 00:01 08/30/25 00:01 08/30/25 00:01 08/30/25 00:01 08/30/25 02:45
Physical Exam
General: Other (45y F sleeping comfortably. Wakes easily but falls quickly back to sleep.)
HEENT: Moist mucous membranes and PERRLA
Respiratory: Clear; No Wheezes, Rales or Rhonchi
Cardiac: S1/S2 and Regular Rhythm; No Murmur
GI: Soft, Non Tender, Non Distended and Normal Bowel Sounds
Rectal: Other (Declined exam due to pain. Seen by CRS in office earlier today.)
Musculoskeletal: No Clubbing, No Cyanosis and No Edema
Neuro: AO x 3
Laboratory Results
-
08/30/25:26
08/30/25:
Laboratory Results
PT 12.5 Sec (11.4-14.6) 08/30/25:
INR 0.93 08/30/25:
APTT 29.3 Sec (23.4-35.0) 08/30/25:
Lactic Acid 1.4 mmol/L (0.7-2.0) 08/30/25:
Total Bilirubin 0.6 mg/dl (0.2-1.3) 08/30/25:
AST 25 U/L (14-36) 08/30/25:
ALT 40 U/L (0-35) H 08/30/25:
Alkaline Phosphatase 95 U/L (38-126) 08/30/25:
Troponin I < 0.012 ng/ml 08/30/25:
Impression/Plan
-
A/P: Patient is a 45y F with PMH significant for HTN, DM-II and prior perirectal abscess who presents to ED complaining of pain in the buttocks / rectum.
Perirectal Abscess
- Admit for further evaluation and treatment.
- Significant pain limiting examination here and in CRS office.
- CT done in the ED - results are pending at present.
- Continue IV abx, IVFs, pain control / supportive care.
- Colorectal Surgery consulted for further evaluation and treatment.
- Tentative plan for OR in the AM.
Benign Hypertension
- Continue usual home medications with holding parameters.
DM-II
- Stable. Hold Mounjaro for now.
- Follow glucose and cover with SSI if needed.
- Update A1C.
Narcolepsy
- Continue usual amphetamine dosage.
DVT Prophylaxis: SCDs
Code Status: Full
[2025-08-30 05:24] LABS: Glucose - Point of Care 99 mg/dl (70-99)
[2025-08-30 05:31] LABS: Hematocrit 37.1 % (37.0-47.0); Hemoglobin 12.6 g/dL (12.0-16.0); Mean Corp Hgb Conc. 34.0 g/dL (33.0-37.0); Mean Corpuscular Volume 90.0 fL (81.0-99.0); Platelet Count 313 10^3/uL (130-400); Red Cell Dist. Width 13.2 % (11.5-14.5)
--- NOTE | 2025-08-30 05:56 | PTCARENOTE ---
Pt arrived to unit via stretcher. Pt walked from stretcher to bed. Pt oriented to room. Pt AAOx3, VSS. Call leal within reach, plan of care ongoing.
[2025-08-30 06:33] LABS: Blood Urea Nitrogen 19 mg/dl (7-17); Calcium 9.1 mg/dl (8.4-10.2); Carbon Dioxide 24 mmol/L (22-30); Chloride 105 mmol/L (98-107); Estimated Creatinine Clearance 109 ml/min; Glucose 86 mg/dl (70-99); Potassium 3.6 mmol/L (3.5-5.1); Sodium 134 mmol/L (135-145); eGFR > 60.00
[2025-08-30] MEDS: MS CONTIN (EXTENDED RELEASE) 30 MG PO ×2 (08:05→21:09)
[2025-08-30] MEDS: ADDERALL PO (08:05)
[2025-08-30] MEDS: CRESTOR 10 MG PO (08:05)
[2025-08-30] MEDS: NEURONTIN PO ×3 (08:06→21:09)
[2025-08-30] MEDS: PEPCID 40 MG PO (08:06)
[2025-08-30] MEDS: ZOSYN 50 IV ×3 (08:07→20:37)
--- NOTE | 2025-08-30 08:12 | W.PN.UPDATE ---
Update Note
Progress Note Update
called to see patient because she wants to sign out AMA due to concerns over the nursing staff
explained we could try to get her a room on another floor--spoke with Nursing Barrel [employer] Matting Machine Operator
she has periretal abscess and needs surgery--plan was for OR today
await response from Nursing hatchery supervisor
[2025-08-30 08:24] LABS: Glycohemoglobin (HgbA1c) 5.9 % (4.0-5.9)
--- NOTE | 2025-08-30 08:44 | W.PN.HOSP.TC ---
Today's Communication/Plan
-
Plan to go to the OR today
Assessment / Plan
Assessment / Plan
Physical Exam
General: Acutely ill
HEENT: Moist mucous membranes and PERRLA
Respiratory: Clear; No Wheezes, Rales or Rhonchi
Cardiac: S1/S2 and Regular Rhythm; No Murmur
GI: Soft, Non Tender, Non Distended and Normal Bowel Sounds
Rectal: Other (Declined exam due to pain).
Musculoskeletal: No Clubbing, No Cyanosis and No Edema
Neuro: AO x 3, no neuro deficits
A/P:
Perirectal Abscess
Admitted for further evaluation and treatment.
Significant pain limiting examination here and in CRS office.
CT done in the ED -reviewed results.
Continue IV abx, IVFs, pain control / supportive care. On IV Zosyn.
Colorectal Surgery consulted for further evaluation and treatment. Discussed with colorectal surgery today.
Patient wanted to sign AMA earlier this morning but decided to stay after further discussion with one of my partners and she was moved to another floor.
Tentative plan for OR today.
Benign Hypertension
Continue usual home medications with holding parameters.
DM-II
Stable. Hold Mounjaro for now.
Follow glucose and cover with SSI if needed.
Update A1C.
Narcolepsy
Continue usual amphetamine dosage.
DVT Prophylaxis: SCDs
Code Status: Full
Anticipated Discharge: 24 - 48 hours
Subjective/Interval History
-
Date of Service: August 30, 2025
Patient still in significant amount of pain in rectal area. No fevers.
Objective Data
-
Labs:
Laboratory Results
08/30/25 08/30/25
01:26 05:14
WBC 19.8 H 18.8 H
Hgb 12.8 12.6
Hct 37.1 37.1
Plt Count 324 313
PT 12.5
INR 0.93
APTT 29.3
Sodium 135 134 L
Potassium 3.8 3.6
Chloride 106 105
Carbon Dioxide 24 24
BUN 21 H 19 H
Creatinine 0.6 0.6
Glucose 94 86
Calcium 9.4 9.1
Total Bilirubin 0.6
AST 25
ALT 40 H
Alkaline Phosphatase 95
Vital Signs:
Vital Signs
Temp Pulse Resp BP Pulse Ox
98.8 F 95 18 124/73 95
08/30/25 07:04 08/30/25 07:04 08/30/25 07:04 08/30/25 07:04 08/30/25 07:04
--- NOTE | 2025-08-30 09:21 | PTCARENOTE ---
Pt agitated this morning, shouting and cursing at nursing staff. Pt threatening to remove IV and requesting to get her paperwork to leave. made aware. Pt shouting in hallway at staff. Cross coverage MD spoke with pt. Nursing agency appointments supervisor made aware
about transferring pt to a different floor to continue care when room available. Pt transferred to 4W at this time.
--- NOTE | 2025-08-30 09:48 | CON.CRS ---
Consultation
-
Date/Time Consultation Requested: 08/30/2025, 04:35
Date/Time Consultation Performed: 08/30/2025, 08:45
Requesting Provider: Daniel Lizarraga DO
Performing Provider: Nabor Cesar MD
Reason for Consultation: anal abscess
Medical History
-
Chief Complaint: anal pain
History of Present Illness:
46-year-old female, known to Dr. Barnard, presents from clinic on complaining of anal pain. She had a prior anal rectal abscess in 2019 that required intraoperative ID at [facility]. Prior to this she had an abscess that
required surgery. She had perianal pain about a week ago and has been on a Z-Wes for an upper respiratory issue. 3 days ago the pain increased.
She was seen in office with Dr. Barnard in due to pain, it was a difficult examination and a MICK was deferred. She was referred to [facility] for further evaluation. On arrival to the ER, her WBC was 19.8. Today it is 18.8. CT of the pelvis
showed a posterior anal rectal abscess with involvement of the internal anal sphincter. It measures 1.3 x 1.4 x 1.6 cm. She was started on IV Zosyn. We have been consulted for further surgical opinion.
Past Medical History
Past Medical History: Other (Hypertension, DM-II, Narcolepsy, Nephrolithiasis, Perirectal Abscess x2, chronic pain)
Past Surgical History: Other (Perirectal Abscess Drainage (2019), Bilateral Knee Arthroscopies)
Social History
Tobacco: Smoker
Alcohol: Occasional
Family History
Family History: Reviewed & Not Pertinent
Allergies / Home Medications
Allergy/AdvReac Type Severity Reaction Status Date / Time
shellfish derived Allergy Hives; Verified 08/30/25 00:00
throat
itchy
acetaminophen (From Tylenol) AdvReac Upset Verified 08/30/25 00:00
stomach
NSAIDS (Non-Steroidal AdvReac 'TEARS MY Verified 08/30/25 00:00
Anti-Inflamma STOMACH UP'
�Medication �Instructions �Recorded �Confirmed �Type
olmesartan 20 mg tablet 20 mg PO DAILY 12/30/21 08/30/25 History
albuterol sulfate 90 mcg/actuation 2 puff inhalation R Q4HPRN PRN 01/10/22 08/30/25 History
aerosol inhaler asthma
amlodipine 5 mg tablet 5 mg PO DAILY 01/10/22 08/30/25 History
budesonide-formoterol HFA 160 2 puff inhalation R BID 01/10/22 08/30/25 History
mcg-4.5 mcg/actuation aerosol
inhaler (Symbicort)
lorazepam 2 mg tablet 2 mg PO Q8HPRN PRN anxiety 01/10/22 08/30/25 History
celecoxib 200 mg capsule 200 mg PO DAILY PRN Pain 08/30/25 08/30/25 History
chlorthalidone 25 mg tablet 25 mg PO DAILY 08/30/25 08/30/25 History
dextroamphetamine-amphetamine 10 10 mg PO DAILY 08/30/25 08/30/25 History
mg tablet
famotidine 40 mg tablet 40 mg PO DAILY 08/30/25 08/30/25 History
gabapentin 300 mg capsule 300 mg PO TID 08/30/25 08/30/25 History
morphine 30 mg tablet,extended 30 mg PO BID 08/30/25 08/30/25 History
release
oxycodone-acetaminophen 10 mg-325 1 tab PO Q6HPRN PRN Pain 08/30/25 08/30/25 History
mg tablet
prednisone 10 mg tablet See Rx Instructions .Route .COMPLEX 08/30/25 08/30/25 History
rosuvastatin 10 mg tablet 10 mg PO DAILY 08/30/25 08/30/25 History
tirzepatide 15 mg/0.5 mL 15 mg SC WEEKLY 08/30/25 08/30/25 History
subcutaneous pen injector
(Connie)
Review of Systems
-
History Source: Patient
: Other (rectal pain)
A 10 point review of systems was completed, and was negative except as per HPI.
Physical Exam
Vital Signs
Temp 98.8 F 08/30/25 07:04
Pulse 95 08/30/25 07:04
Resp Rate 18 08/30/25 07:04
Blood pressure 124/73 08/30/25 07:04
SaO2 95 08/30/25 07:04
08/29/25 08/30/25 08/31/25
06:59 06:59 06:59
Actual Weight 79.515 kg
Body Mass Index (BMI) 34.2
Lab Results / Allergies
08/30/25 05:14
08/30/25 05:14
WBC 18.8 10^3/uL (4.8-10.8) H 08/30/25 05:14
Hgb 12.6 g/dL (12.0-16.0) 08/30/25 05:14
Hct 37.1 % (37.0-47.0) 08/30/25 05:14
Plt Count 313 10^3/uL (130-400) 08/30/25 05:14
Abs Immat Gran (auto) 0.1 10^3/uL (0-0.05) H 08/30/25 01:26
Neutrophils % 76.7 % (42.2-75.2) H 08/30/25 01:26
Allergy/AdvReac Type Severity Reaction Status Date / Time
shellfish derived Allergy Hives; Verified 08/30/25 00:00
throat
itchy
acetaminophen (From Tylenol) AdvReac Upset Verified 08/30/25 00:00
stomach
NSAIDS (Non-Steroidal AdvReac 'TEARS MY Verified 08/30/25 00:00
Anti-Inflamma STOMACH UP'
Physical Exam
General: Well Developed, Well Nourished and No Apparent Distress
Rectal: Deferred by Provider
Neuro: AO x 3
Data Reviewed
-
CT Scan: Image Personally Visualized and interpreted, Report Reviewed by me and Discussed with Patient
Labs: Labs Reviewed by me, Discussed with Physician and Discussed with Patient
Assessment / Plan
-
Assessment: 45-year-old female with prior history of perirectal abscess presents to [facility] from clinic with a posterior anal abscess with a component of the internal sphincter
Plan:
- She has been added to the operating room schedule today with Dr. Barnard
- Remain n.p.o.
- IV fluids
- Pain control
- Continue IV antibiotics
[2025-08-30 10:01] LABS: Urine Character Clear (Clear)
[2025-08-30 11:55] LABS: Glucose - Point of Care 92 mg/dl (70-99)
--- NOTE | 2025-08-30 14:19 | W.PN.UPDATE ---
Update Note
Progress Note Update
Spoke to patient just now at the bedside. She is standing and in discomfort. I told her I did review the CT this morning and it does show a sub-2 cm perianal abscess in the posterior position. I suspect this to be intersphincteric. The plans are
for the OR later today for anal exam under anesthesia with incision and drainage of abscess and possible fistulotomy. I suspect an intersphincteric abscess and sometimes a internal sphincterotomy is performed to treat this. Operation discussed
with the patient in detail including risks and benefits. Risks described included but not limited to bleeding, infection/ongoing infection, changes bowel control/fecal incontinence, abscess persistence, fistula formation, potential need for further
surgeries, urinary retention, and anesthetic risk. Given the small size of the abscess it is possible that I am unsuccessful in finding it intraoperatively. In that circumstance antibiotics will be the mainstay. The patient understood and agrees
to proceed.
--- NOTE | 2025-08-30 14:25 | PTCARENOTE ---
Patient is disconnecting her IV and states she can not wait till 6pm for sx. Patient was educated on importance of not disconnecting her IV and educated on risk for infection. Patient left room and states she needed to go for a walk outside. per
policy patient was notified that she could walk around the unit, patient continued to walk towards the elevators. Security was notified and MD Morse notified. will continue to monitor.
--- NOTE | 2025-08-30 15:32 | CM ---
Patient admitted with an anorectal abscess. She has been in significant discomfort and was aggitated earlier and transferred to .
Susan lives with her SO, Nabor in a 2 story home with 4+1 entry steps. CM was unable to obtain additional information from patient; she anticipates having a surgical procedure today.
Plan: CM to contineue to follow for all identified discharge planning needs.
--- NOTE | 2025-08-30 16:24 | PTCARENOTE ---
attempt to prep patient for surgery, patient refusing to put on hospital gown patient states wants to to change out of her sweater and sweatpants when closer to surgery time. will continue to monitor.
[2025-08-30 18:09] LABS: Glucose - Point of Care 105 mg/dl (70-99)
--- NOTE | 2025-08-30 19:44 | W.IMMPOSTOP ---
Addendum entered and electronically signed by Vivek Barnard MD 08/30/25 19:53:
Updated patient's next of kin, Nabor.
Original Note:
Surgical Immed Post Op Note
-
Primary Surgeon: Daniel Barnard MD
Assisting Surgeon: none
Pre-op Diagnosis: perinanal abscess
Post-op Diagnosis: same
Procedure Performed: incision and drainage perianal abscess
Anesthesia Type: general plus local
Specimen / Cultures: abscess cultures
Estimated Blood Loss: 10 cc
Complications: no immediate
Operative Findings: right posterior perianal/intersphincteric abscess
Gelfoam anal tampon and 4 by 4s and tape used for dressing.
Will send back to med surg.
Resume diet.
Anticipate discharge tomorrow am.
[2025-08-30 19:56] LABS: Glucose - Point of Care 126 mg/dl (70-99)
[2025-08-30 21:37] LABS: Glucose - Point of Care 160 mg/dl (70-99)
--- NOTE | 2025-08-30 22:04 | W.PN.UPDATE ---
Update Note
Progress Note Update
Asked to see patient for uncontrolled pain. Patient evaluated, states her rectal pain is 20 out of 10, refusing ordered pain medication (Gabapentin and Tylenol). Patient took scheduled MS Contin approx minutes prior to evaluation. Pt stated that
medication never works for her and she doesn't know why it is even ordered. Explained it is on her home medication list, she stated she doesn't know why its on her med list, her PCP prescribed and she doesn't know why. (??) Patient asking to leave
AMA per RN. Nursing Rotor Balancer talked with patient. RN talked with Surgery about pain regimen, no changes made, patient can leave AMA. Patient's significant other at bedside, agreeing that patient should stay for pain management and not good idea
for patient to leave AMA. Patient stated to RN that she will wait for 23:00 pain medication and then will leave after that is given. I spoke with patient and let her know that we would not give pain medication right before she would leave AMA. She
verbalized that she would stay then. RN and Nursing metal hanging supervisor aware of conversation and that patient stated she will stay after 23:00 dose of pain medication is given.
--- NOTE | 2025-08-30 22:37 | PTCARENOTE ---
Addendum entered by Yenni Rob RN 08/30/25 23:34:
2330 pt less anxious, prn dilaudid dose given for 10/10 pain. Also previously spoke to Dr. Barnard on the phone at approx 2140 regarding previous situation. No new orders were discussed at that time. Pt sig other at bedside. Care ongoing.
Original Note:
Pt admitted from PACU s/p I&D of perianal abscess @ 2054. Pt aaox3, tearful, anxious, and frustrated. Rating pain 20/10 but not due for pain medication yet. Offered her the scheduled gabapentin but refused. Did administer the scheduled ms contin.
IVF infusing per order. Pt getting increasingly agitated asking for papers to leave. UMBRELLA TIPPER notifed and aware about pain management, at bedside to see pt, no new orders at current time. Nursing oil field pipeline supervisor called and at bedside. Pt refusing hospital
socks even after educating her on the anesthesia. Pt insisting that she does not need them. Pt sig other at bedside. Pt then requesting 2300 pain medication then leaving. UMBRELLA TIPPER at bedside to explain that is not an option. Pt agreeable to staying the
night.
[2025-08-31] MEDS: ZOSYN 50 IV ×2 (02:12→07:58)
[2025-08-31 03:09] VITALS: BP 116/70
[2025-08-31] MEDS: DILAUDID 0.5 MG IV ×3 (04:26→11:05)
[2025-08-31 06:41] LABS: Hematocrit 41.2 % (37.0-47.0); Hemoglobin 14.1 g/dL (12.0-16.0); Mean Corp Hgb Conc. 34.2 g/dL (33.0-37.0); Mean Corpuscular Volume 88.4 fL (81.0-99.0); Platelet Count 360 10^3/uL (130-400); Red Cell Dist. Width 12.5 % (11.5-14.5)
[2025-08-31 06:52] LABS: Blood Urea Nitrogen 11 mg/dl (7-17); Calcium 9.6 mg/dl (8.4-10.2); Carbon Dioxide 28 mmol/L (22-30); Chloride 98 mmol/L (98-107); Estimated Creatinine Clearance 109 ml/min; Glucose 168 mg/dl (70-99); Potassium 3.7 mmol/L (3.5-5.1); Sodium 134 mmol/L (135-145); eGFR > 60.00
[2025-08-31] MEDS: PEPCID 40 MG PO (07:58)
[2025-08-31] MEDS: CRESTOR 10 MG PO (07:58)
[2025-08-31] MEDS: NEURONTIN 300 MG PO (07:58)
[2025-08-31] MEDS: MS CONTIN (EXTENDED RELEASE) 30 MG PO (07:58)
[2025-08-31] MEDS: ADDERALL 10 MG PO (07:58)
[2025-08-31 08:00] VITALS: BP 139/84
[2025-08-31 08:16] LABS: Glucose - Point of Care 175 mg/dl (70-99)
[2025-08-31 08:51] LABS: Nucleated Red Blood Cells % 0 %
--- NOTE | 2025-08-31 09:13 | W.PN.HOSP.TC ---
Today's Communication/Plan
-
Discharge planning today
Assessment / Plan
Assessment / Plan
Physical Exam
General: No acute distress
HEENT: Moist mucous membranes and PERRLA
Respiratory: Clear; No Wheezes, Rales or Rhonchi
Cardiac: S1/S2 and Regular Rhythm; No Murmur
GI: Soft, Non Tender, Non Distended and Normal Bowel Sounds
Rectal: Declined exam since colorectal just examined her before me today.
Musculoskeletal: No Clubbing, No Cyanosis and No Edema
Neuro: AO x 3, no neuro deficits
A/P:
Perirectal Abscess
Status post surgery I&D by colorectal surgery.
Change IV antibiotics to oral today
Colorectal surgery reevaluated patient and cleared her for discharge today
Benign Hypertension
Continue usual home medications with holding parameters.
DM-II
Stable. Hold Mounjaro for now. Can resume upon discharge
Follow glucose and cover with SSI if needed.
Updated A1C 5.9.
Narcolepsy
Continue usual amphetamine dosage.
DVT Prophylaxis: SCDs
Code Status: Full
Anticipated Discharge: Today
Subjective/Interval History
-
Date of Service: August 31, 2025
Patient feels better today. Afebrile
Objective Data
-
Labs:
Laboratory Results
08/31/25
05:16
WBC 22.3 H
Hgb 14.1
Hct 41.2
Plt Count 360
Sodium 134 L
Potassium 3.7
Chloride 98
Carbon Dioxide 28
BUN 11
Creatinine 0.5 L
Glucose 168 H
Calcium 9.6
Vital Signs:
Vital Signs
Temp Pulse Resp BP Pulse Ox
98.5 F 101 18 139/84 96
08/31/25 08:00 08/31/25 08:00 08/31/25 08:00 08/31/25 08:00 08/31/25 08:00
I&O
08/30/25 08/31/25 09/01/25
06:59 06:59 06:59
Intake Total 900 / 900
Output Total 400 / 400
Balance 500 / 500
--- NOTE | 2025-08-31 10:38 | W.PN.CRS1 ---
Today's Communication / Plan
-
sitz baths
fiber
antibiotics
pain control
f/u in office in 2 weeks
Assessment/Plan
-
POD#1 incision and drainage perianal abscess
Vitals: normal
WBC: 22.3 (18.8), Hgb 14.1
-Continue diet
-Daily dressing changes and as needed
-Sitz baths twice a day for 10 minutes at a time with warm water
-Finish course of abx, convert to po as an outpatient
-Pain management
-OOB as tolerated
-Daily fiber supplement
-Colace 100mg po BID PRN constipation
-Follow up in the office in [address] Barnard for a wound check
Subjective Data
Procedure
08/30/2025- incision and drainage perianal abscess
Subjective Data
Date of Service: August 31, 2025
Patient states she is 'sore', but less sore than when she came in. She denies nausea or vomiting. Tolerating a diet.
Objective Data
-
Vital Signs
Temp Pulse Resp BP Pulse Ox
98.5 F 101 18 139/84 96
08/31/25 08:00 08/31/25 08:00 08/31/25 08:00 08/31/25 08:00 08/31/25 08:00
Intake & Output
08/30/25 08/31/25 09/01/25
06:59 06:59 06:59
Intake Total 900 / 900
Output Total 400 / 400
Balance 500 / 500
Intake:
IV fluids (Total) 850 / 850
IV piggybacks 50 / 50
Output:
Urine, Voided 400 / 400
Other:
Number of approximated MODERATE 2
amounts of urine
Lab Results
08/31/25 05:16
08/31/25 05:16
Physical Exam
-
General: No Acute Distress and AOx3
Abdomen: Soft, Non Distended and Non Tender
Rectal: Other (wound with a little oozing, no erythema or pus noted, dressing replaced)
Skin: Warm and Dry
Wound: Dressing Changed
--- NOTE | 2025-08-31 11:43 | W.DCSUMMARY ---
Discharge Summary
Discharge Data
Date of Admission: 08/30/25
Date of Discharge: 08/31/25
Total time spent discharging patient (in min): 32
-
Pending Results: No
Hospital Course
Patient 45-year-old female with history of hypertension, diabetes mellitus, prior perineal abscess, came into the hospital with yet another perianal abscess. Colorectal surgery consulted. Patient was given IV fluids, IV antibiotics, and pain
control. Colorectal surgery took her to the OR on 08/30 and they did incision and drainage of the perianal abscess. Wound culture results pending. Blood cultures sterile for more than 24 hours. Leukocytosis persistent but clinically improved.
Colorectal surgery cleared her for discharge today. She will be discharged in stable condition today.
Discharge duration: 32 minutes
Discharge Plan
-
Patient Disposition: Home (Routine Discharge)
Discharge Diagnosis/Procedures: incision and drainage perianal abscess
Diet: Regular
Activity: As tolerated
Bathing Restrictions: None
Blood Work: Please PCP to order CBC, BMP within 1 week
Wound Care: -Sitz baths twice a day for 10 minutes at a time with warm water
-Daily fiber supplement
-Colace 100mg po BID as needed for constipation
-Change dressing daily (apply a gauze to the area) and as needed. Okay to remove once drainage stops.
Instructions: Psyllium, How to take a sitz bath
Stand Alone Forms: Return to Work
Referrals:
Vivek Barnard MD [Active, ColoRectal] - in two weeks
Clovis Dejesus DO [Family Provider, Family Practice] - in less than 1 week
Prescriptions:
New
amoxicillin-pot clavulanate 875-125 mg Tablet
1 tab PO Q12 10 Days Qty: 20 0RF
oxycodone 10 mg Tablet
10 mg PO Q4HPRN PRN (Reason: severe pain) Qty: 14 0RF
polyethylene glycol 3350 [Miralax] 17 gram/dose powder
4 g PO DAILY Qty: 119 0RF
Continued
olmesartan 20 MG tablet
20 mg PO DAILY
amlodipine 5 MG tablet
5 mg PO DAILY
lorazepam 2 MG tablet
2 mg PO Q8HPRN PRN (Reason: anxiety)
albuterol sulfate 1 PUFF HFA aerosol inhaler
2 puff inhalation R Q4HPRN PRN (Reason: asthma)
budesonide-formoterol [Symbicort] 1 PUFF HFA aerosol inhaler
2 puff inhalation R BID
celecoxib 200 mg capsule
200 mg PO DAILY PRN (Reason: Pain)
prednisone 10 mg tablet
See Rx Instructions .ROUTE .COMPLEX
Rx Instructions:
Taper as per 'original instructions'
famotidine 40 mg tablet
40 mg PO DAILY
dextroamphetamine-amphetamine 10 mg tablet
10 mg PO DAILY
chlorthalidone 25 mg tablet
25 mg PO DAILY
gabapentin 300 mg capsule
300 mg PO TID
rosuvastatin 10 mg tablet
10 mg PO DAILY
Mounjaro 15 mg/0.5 mL pen injector
15 mg SC WEEKLY
morphine 30 mg tablet extended release
30 mg PO BID
oxycodone-acetaminophen 10-325 mg tablet
1 tab PO Q6HPRN PRN (Reason: Pain)
Discharge Orders:
Discharge Patient (As Directed); Ordered 08/31/25
Ordered By: Juan Alberto Morse
Discharge Date and Time
Discharge Date/Time: 08/31/25 13:09
Print Language: BAHAMIAN
[2025-08-31 11:49] VITALS: BP 125/80
[2025-08-31 11:55] LABS: Glucose - Point of Care 178 mg/dl (70-99)
[2025-08-31] MEDS: AUGMENTIN 875 MG/125 MG 1 TABLET PO (12:10)
== END 2025-08-31 13:09 | disposition home or self-care (01) | DRG 348 ==
LOC: 2 SOUTH 04:13
PROVIDERS: Surgery; ADMITTING PHYSICIAN Hospitalist; ATTENDING PHYSICIAN Hospitalist; EMERGENCY PHYSICIAN Student in an Organized Health Care Education/Training Program; FAMILY PHYSICIAN Family Medicine; OTHER PHYSICIAN Surgery
PROC: 0D9Q0ZZ Drainage of Anus, Open Approach (ICD-10-PCS; 2025-08-30)
DX: K61.2 Anorectal abscess (principal); F11.20 Opioid dependence, uncomplicated; K61.4 Intrasphincteric abscess; G89.4 Chronic pain syndrome; I10 Essential (primary) hypertension; E11.9 Type 2 diabetes mellitus without complications; Z79.84 Long term (current) use of oral hypoglycemic drugs; G47.419 Narcolepsy without cataplexy; F17.200 Nicotine dependence, unspecified, uncomplicated; K62.89 Other specified diseases of anus and rectum; Z79.899 Other long term (current) drug therapy
CPT/HCPCS: 72193; 80048; 80053; 81003; 82962; 83036; 83605; 84484; 84703; 85025; 85027; 85610; 85730; 87040; 87070; 87075; 87205; 96361; 96365; 96375; 99284; Q9967